=== PATIENT | female | born 1995 | race African-American/Black ===

== ENCOUNTER 2018-02-11 13:16 | Observation (INO) | payer BC, OTHER ==
[2018-02-11 14:09] VITALS: O2SAT 97
--- NOTE | 2018-02-11 16:34 | XRAY ---
Indication: Decreased movement. 2-dimensional OB ultrasound performed. Comparison: None There is a single viable intrauterine currently in cephalic presentation. Normal four-chamber heart with heart rate 155 BPM. Normal three-vessel cord and cord insertion. Visualized spine, stomach, kidneys, and bladder appear unremarkable. Anterior placenta without abruption/previa. BPD measures 7.87 cm corresponding to 31 weeks 4 days. HC measures 28.81 cm corresponding to 31 weeks 5 days. AC measures 26.49 cm corresponding to 30 weeks 4 days. FL measures 6.24 cm corresponding to 32 weeks 2 days. RADHA is 14 cm. Impression: Single viable intrauterine with mean gestational age 31 weeks 4 days. Expected date confinement is April 11, 2018. Nothing acute.
[2018-02-11] MEDS ORDERED: Lactated Ringers 1,000 ML IV ONE (17:55)
[2018-02-11 17:56] LABS: BASOPHIL % 0.1 % (0.0-0.4); Basophil (Absolute #) 0.01 (0-0.4); Eosinophil % 0.5 % (0.00-5.0); Eosinophil (Absolute #) 0.05 (0-0.5); Granulocyte Absolute (ANC) 7.75 (1.4-6.9); Granulocytes % 73.5 % (36.0-66.0); Hematocrit 29.2 % (35-47); Hemoglobin 8.9 gm/dl (12.0-16.0); Lymphocyte (Absolute #) 1.68 (1.0-4.6); Lymphocytes % 15.9 % (24.0-44.0); Mean Corpuscular Hemoglobin 21.3 pg (26-32); Mean Corpuscular Hgb Concent. 30.5 g/dl (32-36); Mean Platelet Volume 10.8 fl (6-9.5); Monocyte (Absolute #) 1.06 (0.0-1.3); Platelet Count 538 K/mm3 (150-450); Red Blood Count 4.17 M/mm3 (4.1-5.4); Red Cell Distribution Width 16.2 % (11.5-14.0); White Blood Count 10.6 K/mm3 (4.0-10.5)
[2018-02-11 18:00] LABS: ALBUMIN 4.1 g/dL (3.5-5.0); ALKALINE PHOSPHATASE 143 U/L (38-126); BLOOD UREA NITROGEN 12 mg/dL (7-17); CHLORIDE 106 mmol/L (98-107); Calcium 9.2 mg/dL (8.4-10.2); Carbon Dioxide 22 mmol/L (22-30); Creatinine 1 0.49 mg/dL (0.52-1.04); Glucose 81 mg/dL (74-106); Potassium 3.7 mmol/L (3.5-5.1); SGOT/AST 29 U/L (14-36); SGPT/ALT 16 U/L (0-35); SODIUM 136 mmol/L (137-145); Total Protein 7.9 g/dL (6.3-8.2)
[2018-02-11] MEDS ORDERED: Lactated Ringers 1,000 ML IV SCH (18:00)
[2018-02-11 18:27] LABS: Appearance SLIGHTLY CLOUDY (CLEAR); Bilirubin NEGATIVE (NEGATIVE); Blood NEGATIVE Ery/ul (0-5); Glucose NEGATIVE (NEGATIVE); Ketones SMALL (NEGATIVE); Leukocyte Esterase MODERATE (NEGATIVE); Nitrite NEGATIVE (NEGATIVE); Protein,Urine Dip 100 (Negative); Urobilinogen 4 mg/dL (0-1)
[2018-02-11 18:31] LABS: Amphetamine,Urine NEGATIVE (NEGATIVE); Barbiturate,Urine NEGATIVE (NEGATIVE); Benzodiazepine,Urine POSITIVE (NEGATIVE); Cocaine,Urine NEGATIVE (NEGATIVE); Methadone,Urine NEGATIVE (NEGATIVE); Opiate,Urine POSITIVE (NEGATIVE); PCP,Urine NEGATIVE (NEGATIVE); THC,Urine POSITIVE (NEGATIVE)
[2018-02-11] MEDS ORDERED: CLINDAMYCIN-D5W 600 MG/50 ML*** 600 MG/50 ML BAG IV SCH (19:00)
[2018-02-11] MEDS ORDERED: TYLENOL 325 MG PO PRN (19:10)
[2018-02-11] MEDS ORDERED: TYLENOL 325 MG ONE (19:12)
[2018-02-11 20:35] VITALS: BP 143/68; PULSE 105
[2018-02-12 02:50] LABS: Slide Review 1 YES
== END 2018-02-11 20:52 | disposition home or self-care (01) ==
LOC: ED 13:16 → OB 14:38 → EEVIPCON 14:38
PROVIDERS: ADMIT Family Medicine; ATTEND Family Medicine
DX: Z34.83 Encounter for supervision of other normal pregnancy, third trimester (principal)
CPT/HCPCS: 36000; 36415; 76805; 80053; 80307; 81001; 85025; 87077; 87086; 87186; 99284; G0378; A9270-GY

== ENCOUNTER 2018-02-12 02:49 | Observation (INO) | payer BC, OTHER ==
[2018-02-12] MEDS ORDERED: BRETHINE 1 MG/ML SQ ONE ×2 (03:24→04:00)
[2018-02-12] MEDS ORDERED: BRETHINE 1 MG/ML ONE ×2 (03:25→03:47)
[2018-02-12] MEDS ORDERED: Sodium Chloride 0.9% 1000 ML 1,000 ML ONE (03:26)
[2018-02-12] MEDS ORDERED: Sodium Chloride 0.9% 1000 ML 1,000 ML IV STA (03:26)
[2018-02-12] MEDS ORDERED: Lactated Ringers 1,000 ML IV ONE (04:29)
[2018-02-12] MEDS ORDERED: Lactated Ringers 1,000 ML IV SCH ×2 (05:00→05:30)
[2018-02-12] MEDS ORDERED: Magnesium Sulfate 40 Gm/1000 Ml H2O Premix*** 1,000 ML IV SCH (05:00)
[2018-02-12 05:31] LABS: Hemoglobin 7.2 gm/dl (12.0-16.0); Mean Cell Volume 70.4 fl (78-100); Mean Corpuscular Hemoglobin 21.1 pg (26-32); Mean Platelet Volume 9.1 fl (6-9.5); Platelet Count 443 K/mm3 (150-450); Red Blood Count 3.41 M/mm3 (4.1-5.4)
[2018-02-12 05:40] LABS: Appearance SLIGHTLY CLOUDY (CLEAR); Bilirubin NEGATIVE (NEGATIVE); Blood NEGATIVE Ery/ul (0-5); Glucose NEGATIVE (NEGATIVE); Ketones NEGATIVE (NEGATIVE); Leukocyte Esterase TRACE (NEGATIVE); Nitrite NEGATIVE (NEGATIVE); Protein,Urine Dip 30 (Negative); Specific Gravity 1.021 (1.005-1.025); Urobilinogen 2 mg/dL (0-1)
[2018-02-12 05:48] LABS: INR 1.07 (0.8-3.0)
[2018-02-12 05:51] LABS: PTT 21.7 SECONDS (25.3-37.0)
[2018-02-12 05:57] LABS: ALBUMIN 3.2 g/dL (3.5-5.0); ALKALINE PHOSPHATASE 108 U/L (38-126); BILIRUBIN,TOTAL < 0.10 mg/dL (0.2-1.3); BLOOD UREA NITROGEN 11 mg/dL (7-17); CHLORIDE 106 mmol/L (98-107); Calcium 8.2 mg/dL (8.4-10.2); Carbon Dioxide 20 mmol/L (22-30); Creatinine 1 0.47 mg/dL (0.52-1.04); Glucose 108 mg/dL (74-106); SGOT/AST 23 U/L (14-36); SGPT/ALT 16 U/L (0-35); SODIUM 138 mmol/L (137-145); Total Protein 6.4 g/dL (6.3-8.2)
[2018-02-12 05:59] LABS: Potassium 2.8 mmol/L (3.5-5.1)
[2018-02-12] MEDS ORDERED: K-LYTE 25 MEQ PO ONE (06:05)
[2018-02-12] MEDS ORDERED: Celestone Soluspan 6MG/ML IM ONE (06:30)
[2018-02-12 07:38] VITALS: O2SAT 100
[2018-02-12 07:47] LABS: Amphetamine,Urine NEGATIVE (NEGATIVE); Barbiturate,Urine NEGATIVE (NEGATIVE); Benzodiazepine,Urine POSITIVE (NEGATIVE); Cocaine,Urine NEGATIVE (NEGATIVE); Methadone,Urine NEGATIVE (NEGATIVE); Opiate,Urine NEGATIVE (NEGATIVE); PCP,Urine NEGATIVE (NEGATIVE); THC,Urine NEGATIVE (NEGATIVE)
[2018-02-12] MEDS ORDERED: ROCEPHIN 1 Gm-D5w 50 ml Bag** 1 G/50 ML IVPB IV ONE (08:30)
[2018-02-12 11:17] VITALS: BP 124/74; PULSE 115
== END 2018-02-12 10:20 | disposition home or self-care (01) ==
LOC: EEVIPCON 02:49 → OB 02:49
PROVIDERS: ADMIT Family Medicine; ATTEND Family Medicine
DX: Z34.83 Encounter for supervision of other normal pregnancy, third trimester (principal)
CPT/HCPCS: 36415; 80053; 80307; 81001; 83735; 84132; 85027; 85610; 85730; 96372; G0378; J0696; J0702; A9270-GY